=== PATIENT | female | born 2000 | race Caucasian/White ===

== ENCOUNTER 2024-03-25 10:40 | Outpatient (CLI) | payer OTHER, SELFPAY | END 2024-03-25 10:41 | disposition home or self-care (01) | LOC: NFLDREF 03-27 09:03 | PROVIDERS: PCP Physician Assistant Medical; Referring Provider Physician Assistant Medical; Visit Provider Physician Assistant Medical | DX: Z00.00 Encounter for general adult medical examination without abnormal findings (principal); R63.5 Abnormal weight gain; E66.9 Obesity, unspecified; K52.9 Noninfective gastroenteritis and colitis, unspecified; N92.0 Excessive and frequent menstruation with regular cycle; F41.1 Generalized anxiety disorder; G47.00 Insomnia, unspecified; F51.01 Primary insomnia; Z78.9 Other specified health status; Z13.9 Encounter for screening, unspecified | CPT/HCPCS: 80053; 80061; 84443; 87491; 87591 ==

== ENCOUNTER 2025-03-23 12:58 | Outpatient (CLI) | payer OTHER, SELFPAY | END 2025-03-23 12:59 | disposition home or self-care (01) | LOC: NFLDREF 03-24 17:53 | PROVIDERS: PCP Physician Assistant Medical; Referring Provider Physician Assistant Medical; Visit Provider Physician Assistant Medical | DX: F41.1 Generalized anxiety disorder (principal); G43.909 Migraine, unspecified, not intractable, without status migrainosus; R11.2 Nausea with vomiting, unspecified; Z13.0 Encounter for screening for diseases of the blood and blood-forming organs and certain disorders involving the immune mechanism | CPT/HCPCS: 82728; 84443 ==

== ENCOUNTER 2025-04-08 13:26 | Outpatient (CLI) | payer OTHER, SELFPAY ==
--- NOTE | 2025-04-08 13:45 | CRLHL7_ITS ---
For Patients: As a result of the Century Cures Act, medical imaging exams and procedure reports are released immediately into your electronic medical record. You may view this report before your referring provider. If you have questions, please contact your health care provider. Indication: Migraines. Technique: Multiplanar multisequence noncontrast MR images of the brain. Comparison: None. Findings: The ventricles and sulci are within normal limits for patient age. No mass effect or midline shift. No parenchymal signal abnormalities. No intracranial hemorrhage or pathologic extra-axial fluid collection. No diffusion restriction to suggest acute infarction. The major arterial flow voids of the skull base are preserved. Globes are symmetric. Minimal paranasal sinus mucosal thickening. The mastoid air cells are clear. Impression: Unremarkable noncontrast MRI of the brain. Dictated by Dav Grijalva MD @ 04/08/2025 3:14:10 PM (Electronically Signed)
== END 2025-04-08 13:27 | disposition home or self-care (01) ==
LOC: MRI 13:27
PROVIDERS: PCP Physician Assistant Medical; Visit Provider Physician Assistant Medical
DX: G43.909 Migraine, unspecified, not intractable, without status migrainosus (principal)
CPT/HCPCS: 70551

== ENCOUNTER 2025-07-13 11:37 | Outpatient (CLI) | payer OTHER, SELFPAY ==
--- NOTE | 2025-07-13 11:45 | CRLHL7_ITS ---
For Patients: As a result of the Century Cures Act, medical imaging exams and procedure reports are released immediately into your electronic medical record. You may view this report before your referring provider. If you have questions, please contact your health care provider. CLINICAL HISTORY: Noninflammatory disorder of uterus TECHNIQUE: Transabdominal and transvaginal pelvic ultrasound. Transvaginal images of the pelvis were obtained for better visualization of the uterus and ovaries. Grayscale and color Doppler images were submitted. COMPARISON: 06/17/2019 pelvic ultrasound FINDINGS: Uterus: 5.7 x 3.0 x 3.8 cm. Moderately retroflexed. Endometrium: 9 mm Uterine positioning makes evaluation somewhat difficult. Hyperechoic area in the fundal endometrium, possibly a polyp no vascular stalk. Right ovary: 3.3 x 1.7 x 1.7 cm Normal appearance. Left ovary: 2.7 x 1.4 x 1.4 cm Normal appearance. No adnexal mass. No free fluid. IMPRESSION: Questionable endometrial polyp. Consider follow-up in 6-8 weeks. Dictated by Ang Barlow MD @ 07/13/2025 3:35:32 PM (Electronically Signed)
== END 2025-07-13 11:38 | disposition home or self-care (01) ==
PROVIDERS: PCP Physician Assistant Medical; Visit Provider Physician Assistant Medical
DX: N85.8 Other specified noninflammatory disorders of uterus (principal)
CPT/HCPCS: 76830; 76856

== ENCOUNTER 2025-07-13 13:31 | Outpatient (CLI) | payer OTHER, SELFPAY | END 2025-07-13 13:32 | disposition home or self-care (01) | LOC: NFLDREF 13:32 | PROVIDERS: PCP Physician Assistant Medical; Visit Provider Obstetrics & Gynecology | DX: N93.9 Abnormal uterine and vaginal bleeding, unspecified (principal) | CPT/HCPCS: 85240; 85245; 85246 ==

== ENCOUNTER 2025-08-02 13:31 | Outpatient (CLI) | payer OTHER, SELFPAY ==
[2025-08-02 18:37] LABS: Chlamydia DNA Amplified* NOT DETECTED (No Detected); GC DNA Amplified* NOT DETECTED (No Detected)
== END 2025-08-02 13:32 | disposition home or self-care (01) ==
LOC: NFLDREF 13:31
PROVIDERS: PCP Physician Assistant Medical; Visit Provider Obstetrics & Gynecology
DX: Z11.3 Encounter for screening for infections with a predominantly sexual mode of transmission (principal)
CPT/HCPCS: 87491; 87591